=== PATIENT | male | born 1995 | race Hispanic/Latino ===

== ENCOUNTER 2024-01-11 02:40 | Emergency (ER) | payer OTHER ==
[2024-01-11] MEDS ORDERED: ONDANSETRON 4 MG/2 ML VIAL ONE ×2 (02:59→04:42)
[2024-01-11] MEDS ORDERED: MORPHINE 4 MG/ML SYR ONE ×3 (03:00→04:43)
[2024-01-11] MEDS ORDERED: TDAP (DIPHTH,PERTUSS(ACELL),TET VAC) 0.5 ML VIAL IMVAC ONE (03:01)
[2024-01-11] MEDS ORDERED: NA CHLORIDE 0.9% 100 ML ONE (03:02)
[2024-01-11] MEDS ORDERED: CEFAZOLIN SODIUM 2 GM/VIAL ONE (03:02)
[2024-01-11 03:55] LABS: Absolute Eosinophils 0.1 K/uL (0-0.5); Absolute Lymphocytes (CBC) 0.9 K/uL (0.7-4.9); Absolute Monocytes 0.7 K/uL (0.1-1.3); Absolute Neutrophil 11.6 K/uL (1.8-8.0); Basophils % 0.2 % (0-1.3); Eosinophils % 0.4 % (0-4.4); Hematocrit 43.7 % (39.6-49.0); Hemoglobin 14.4 g/dL (13.6-17.9); Lymphocytes % 6.8 % (15.3-44.8); MCH 30.1 pg (27.0-35.0); MCV 91.4 fL (80-100); MPV 10.4 fL (7.6-11.3); Monocytes % 5.5 % (3.3-12.3); Neutrophils % 87.1 % (41.7-73.7); Platelets 161 thou/uL (152-406); RBC Red Blood Cell Count 4.77 M/uL (4.33-5.43); Red Cell Distribution Width 13.1 % (12.1-15.2)
[2024-01-11 04:12] LABS: Albumin 3.6 g/dL (3.4-5.0); Anion Gap 5.7 mEq/L (5.0-15.0); Bilirubin Total 0.3 mg/dL (0.2-1.0); Globulin 3.5 g/dL (2.3-3.5); Potassium 3.7 mEq/L (3.5-5.1); Protein, Total 7.1 g/dL (6.4-8.2)
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
--- NOTE | 2024-01-11 06:28 | RAD REPORT ---
PROCEDURE: XR Right Knee, 3 Views CLINICAL INDICATION: The patient is 28 years old and is Male; Trauma. TECHNIQUE: Three views of the right knee. COMPARISON: None. FINDINGS: BONES/JOINTS: No acute fracture. No suspicious lytic or blastic bone lesions. No subluxation or dis location. SOFT TISSUES: Unremarkable IMPRESSION: No acute findings in the right knee. Electronically signed by: Rakesh Hickey MD 01/11/2024 06:25 AM CDT RP Due to temporary technical issues with the [employer] reporting system, reports are being mario d by the in-house radiologist without review as a courtesy to ensure prompt reporting the interpreting radiologist is fully responsible for the content of the report. Transcribed Date/Time: 01/11/2024 6:28 AM
--- NOTE | 2024-01-11 06:29 | RAD REPORT ---
PROCEDURE: XR Right Tibia and Fibula, 2 Views CLINICAL INDICATION: The patient is 28 years old and is Male; Trauma. TECHNIQUE: Frontal and lateral views of the right tibia and fibula. COMPARISON: None. FINDINGS: BONES/JOINTS: No acute fracture. No suspicious lytic or blastic bone lesions. No subluxation or dis location. SOFT TISSUES: Unremarkable No radiopaque foreign body. IMPRESSION: No acute findings in the right tibia and fibula. Electronically signed by: Rakesh Hickey MD 01/11/2024 06:25 AM CDT Due to temporary technical issues with the [employer]/[facility] reporting system, reports are being mario d by the in-house radiologist without review as a courtesy to ensure prompt reporting the interpreting radiologist is fully responsible for the content of the report. Transcribed Date/Time: 01/11/2024 6:28 AM
[2024-01-11 08:42] LABS: White Blood Cell Scan OK (OK)
[2024-01-11 08:43] LABS: Blood Morphology Comment NOT SEEN (NOT SEEN); Platelet Estimate ADEQ
[2024-01-11 10:44] VITALS: TEMP 98.1
[2024-01-11 10:51] VITALS: BP 124/75; O2SAT 99
== END 2024-01-11 09:58 | disposition short-term general hospital (02) ==
LOC: ER 02:40
DX: S02.69XB Fracture of mandible of other specified site, initial encounter for open fracture (principal); S80.11XA Contusion of right lower leg, initial encounter; R07.89 Other chest pain
CPT/HCPCS: 96365; 85025; 36415; 80053; 70450; 72125; 71260; 70486; 76377; 74177; 73562; 73590; 96375; 96372; 99285; Q9967; J2405 ×2